=== PATIENT | male | born 1980 | race Caucasian/White ===

== ENCOUNTER 2022-01-15 00:30 | Emergency (ER) | payer OTHER ==
[2022-01-15] MEDS ORDERED: HYDROmorphone 1 MG/ML Syringe IM ONE (00:45)
[2022-01-15] MEDS ORDERED: methylPREDNISolone Sodium Succinate 125 MG/2 ML SDV IM ONE (00:45)
[2022-01-15] MEDS ORDERED: Bacitracin Oint 28.35 GM Tube ONE (00:48)
[2022-01-15] MEDS ORDERED: Bacitracin Oint 28.35 GM Tube TOP SCH (21:00)
== END 2022-01-15 01:18 | disposition home or self-care (01) ==
LOC: JP.ED 00:30
DX: T22.191A Burn of first degree of multiple sites of right shoulder and upper limb, except wrist and hand, initial encounter (principal); T20.10XA Burn of first degree of head, face, and neck, unspecified site, initial encounter; F17.210 Nicotine dependence, cigarettes, uncomplicated; Z79.899 Other long term (current) drug therapy; X08.8XXA Exposure to other specified smoke, fire and flames, initial encounter
CPT/HCPCS: 16000; 96372; 99282; 99283; A9270; J1170; J2930

== ENCOUNTER 2022-02-13 20:48 | Emergency (ER) | payer OTHER ==
[2022-02-13] MEDS ORDERED: Ondansetron 4 MG/2 ML SDV IVPUSH ONE (21:56)
[2022-02-13] MEDS ORDERED: HYDROmorphone 1 MG/ML Syringe IVPUSH ONE (21:56)
[2022-02-13] MEDS ORDERED: Metoclopramide 10 MG/2 ML SDV IVPUSH ONE (22:10)
[2022-02-13] MEDS ORDERED: Pantoprazole 40 MG Vial IVPUSH ONE (22:13)
[2022-02-13] MEDS ORDERED: diphenhydrAMINE 50 MG/ML SDV IVPUSH ONE (22:15)
[2022-02-13] MEDS ORDERED: Labetalol 20 MG/4 ML Syringe IVPUSH ONE (22:36)
[2022-02-13 22:46] LABS: ESTIMATED GFR 77 mL/min (>60)
[2022-02-13] MEDS ORDERED: Sodium Chloride 0.9% 1,000 ML IV ONE (23:02)
[2022-02-14] MEDS ORDERED: Sucralfate 1 GM Tab PO ONE (01:16)
== END 2022-02-14 02:21 | disposition home or self-care (01) ==
LOC: JP.ED 20:48
DX: R10.13 Epigastric pain (principal); C75.9 Malignant neoplasm of endocrine gland, unspecified; R11.10 Vomiting, unspecified; I10 Essential (primary) hypertension; F17.210 Nicotine dependence, cigarettes, uncomplicated; Z79.899 Other long term (current) drug therapy
CPT/HCPCS: 36415; 74019; 80053; 81001; 83690; 85025; 86140; 96361; 96374; 96375; 99283; 99284; A9270; C9113; J1170; J1200; J2405; J2765; J3490; J7030